=== PATIENT | male | born 1955 | race Caucasian/White ===

== ENCOUNTER 2023-03-16 09:21 | Outpatient (CLI) | payer BC, SELFPAY | END 2023-03-16 09:22 | disposition home or self-care (01) | LOC: NFLDREF 03-23 09:42 | PROVIDERS: PCP Physician Assistant Medical; Referring Provider Physician Assistant Medical; Visit Provider Physician Assistant Medical | DX: Z00.00 Encounter for general adult medical examination without abnormal findings (principal); I10 Essential (primary) hypertension; Z13.6 Encounter for screening for cardiovascular disorders; Z12.5 Encounter for screening for malignant neoplasm of prostate | CPT/HCPCS: 80053; 80061; 84153 ==

== ENCOUNTER 2024-03-19 08:42 | Outpatient (CLI) | payer MEDICARE, SELFPAY | END 2024-03-19 08:43 | disposition home or self-care (01) | LOC: NFLDREF 03-22 11:02 | PROVIDERS: PCP Physician Assistant Medical; Referring Provider Physician Assistant Medical; Visit Provider Physician Assistant Medical | DX: Z00.00 Encounter for general adult medical examination without abnormal findings (principal); I10 Essential (primary) hypertension; E78.5 Hyperlipidemia, unspecified; N52.9 Male erectile dysfunction, unspecified; L40.9 Psoriasis, unspecified; Z12.5 Encounter for screening for malignant neoplasm of prostate; Z13.1 Encounter for screening for diabetes mellitus; Z13.6 Encounter for screening for cardiovascular disorders | CPT/HCPCS: 80053; 80061; G0103 ==

== ENCOUNTER 2024-04-21 12:21 | Outpatient (CLI) | payer MEDICARE, SELFPAY ==
--- NOTE | 2024-05-13 09:48 | W.PM.SLEEP ---
Sleep Study Details Details Interpreting Provider: Roberto Date of Sleep Study: 04/21/24 Sleep Study Details: STUDY TYPE:? Home unattended ? BMI:? 30.6 ORDERING PROVIDER:? Roberto INDICATION:? Concern about sleep apnea ? SLEEP SUMMARY:? 354 minutes monitored RESPIRATORY SUMMARY:? AHI 23.8 per rule 1A a guideline, 13.9 per CMS guideline, low oxygen 73, 79.4% of study oxygen less than 90%, snoring 97.3% PERIODIC LIMB MOVEMENTS OF SLEEP:? Not record CARDIAC:? Range 58-104, mean 73 IMPRESSION:? Mild obstructive sleep apnea with significant desaturations RECOMMENDATION: Treatment options include CPAP AutoSet 4-17, dental appliance and/or airway expansion surgery. Once effective therapy is established an overnight oximetry should be performed to determine if he would benefit from nocturnal oxygen.
== END 2024-04-21 12:22 | disposition home or self-care (01) ==
LOC: SLEEP 12:22
PROVIDERS: PCP Physician Assistant Medical; Visit Provider Otolaryngology
DX: G47.33 Obstructive sleep apnea (adult) (pediatric) (principal)
CPT/HCPCS: 95806